=== PATIENT | male | born 1960 | race Caucasian/White ===

== ENCOUNTER 2021-04-29 01:30 | Inpatient (IN) ==
[~2021-04-29 01:30] MED LIST: Melatonin 3 MG TABLET PO PRN; Naloxone 0.4 MG/ML INJ IVP PRN
[2021-04-29] MEDS ORDERED: *HR* Dextrose 50 % in Water (Syg) 50 ML SYRINGE IVP PRN ×2 (01:41→11:59)
[2021-04-29] MEDS ORDERED: Dextrose Gel 15 GM/37.5 ML TUBE PO PRN ×4 (01:41→11:59)
[2021-04-29] MEDS ORDERED: D5% in Water 1,000 ML IVC PRN ×2 (01:41→11:59)
[2021-04-29] MEDS ORDERED: Albuterol 2.5 MG/3 ML NEBULIZER IH PRN ×2 (02:19→11:59)
[2021-04-29] MEDS ORDERED: Ringers Solution, Lactated 1,000 ML IVC SCH (03:00)
[2021-04-29 03:59] LABS: Basophils % 0.1 %; Hematocrit 44.1 % (37.5-50.1); Hemoglobin 14.9 g/dL (12.9-16.9); Immature Granulocytes % 0.8 % (0-4); Lymphocytes # 1.8 K/mcL (0.6-4.6); Lymphocytes % 8.4 %; Mean Corpuscular HGB Conc 33.8 g/dL (31.6-35.5); Mean Corpuscular Hemoglobin 31.2 pg (28.0-33.3); Mean Corpuscular Volume 92.5 fL (83.0-100.0); Mean Platelet Volume 8.7 fL (9.4-12.4); Monocytes # 1.5 K/mcL (0.0-1.3); Monocytes % 6.9 %; Neutrophils # 18.1 K/mcL (1.6-8.9); Platelet Count 193 K/mcL (140-400); Red Blood Count 4.77 M/mcL (4.19-5.50); Red Cell Distribution Width 13.2 % (11.5-14.5); Segmented Neutrophils % 83.8 %; White Blood Count 21.6 K/mcL (4.3-11.1)
[2021-04-29 04:16] LABS: INR 1.4; Prothrombin Time 15.2 Seconds (9.4-12.1)
[2021-04-29 04:22] LABS: Alanine Aminotransferase 7 Units/L (7-52); Albumin 3.4 g/dL (3.5-5.7); Albumin/Globulin Ratio 1.4 (1.1-2.2); Alkaline Phosphatase 47 Units/L (34-104); Aspartate Amino Transferase 10 Units/L (13-39); BUN/Creatinine Ratio 15 (6-26); Bilirubin,Total 0.9 mg/dL (0.3-1.0); Blood Urea Nitrogen 10 mg/dL (8-23); Calcium 8.5 mg/dL (8.6-10.3); Carbon Dioxide 28 mEq/L (23-29); Chloride 102 mEq/L (98-107); Globulin 2.4 g/dL (2.4-3.5); Glucose 123 mg/dL (70-105); Magnesium 1.8 mg/dL (1.6-2.6); Osmolality,Calculated 274 (280-300); Phosphorous 2.2 mg/dL (2.7-4.5); Potassium 3.5 mEq/L (3.5-5.1); Sodium 132 mEq/L (136-145); Total Protein 5.8 g/dL (6.4-8.9); eGFR For African Americans > 60 (> 60); eGFR For Non-African Americans > 60 (> 60)
[2021-04-29] MEDS ORDERED: 0.9 % Sodium Chloride 1,000 ML IVC SCH (04:30)
[2021-04-29] MEDS ORDERED: Piperacillin/Tazobactam 3.375 GM in 0.9 % Sodium Chloride Mini Bag 100 ML IVPB SCH (06:00)
[2021-04-29] MEDS ORDERED: Insulin LISPRO 300 UNITS/3 ML VIAL SUBQ SCH (06:00)
[2021-04-29] MEDS ORDERED: Ondansetron 4 MG/2 ML VIAL IVP PRN ×2 (09:11→11:59)
[2021-04-29] MEDS ORDERED: Ipratropium Neb 0.5 MG NEBULIZER IH PRN ×2 (09:11→11:59)
[2021-04-29] MEDS ORDERED: *HR* FentaNYL (PF) 100 MCG/2 ML VIAL IVP PRN ×2 (09:11→11:59)
[2021-04-29] MEDS ORDERED: Albuterol 2.5 MG/3 ML NEBULIZER IH ONE (09:12)
[2021-04-29] MEDS ORDERED: *HR* Succinylcholine 200 MG/10 ML VIAL IVP ONE (09:13)
[2021-04-29] MEDS ORDERED: *HR* Propofol 200 MG/20 ML VIAL IVP ONE (09:13)
[2021-04-29] MEDS ORDERED: Lidocaine HCL 4 ML Topical Solution (Laryng-O-Jet Kit Sterile Pak) TP ONE (09:13)
[2021-04-29] MEDS ORDERED: *HR* FentaNYL (PF) 100 MCG/2 ML VIAL ONE (09:13)
[2021-04-29] MEDS ORDERED: *HR* Rocuronium Bromide 50 MG/5 ML VIAL ONE (09:13)
[2021-04-29] MEDS ORDERED: Ondansetron 4 MG/2 ML VIAL ONE (09:13)
[2021-04-29] MEDS ORDERED: *HR* Midazolam HCl 2 MG/2 ML VIAL ONE (09:13)
[2021-04-29] MEDS ORDERED: Lidocaine -MPF 2% 5 ML VIAL ONE (09:13)
[2021-04-29] MEDS ORDERED: Sugammadex Sodium 200 MG/2 ML VIAL IV ONE (10:20)
[2021-04-29] MEDS ORDERED: *HR* HYDROMORPHONE 2 MG/ML VIAL ONE (10:32)
[2021-04-29] MEDS: *HR* HYDROmorphone PF 0.5 MG/0.5 ML SYRINGE IVP PRN ×3 (11:08→11:26)
[2021-04-29] MEDS ORDERED: Ringers Solution, Lactated 1,000 ML ONE (11:20)
[2021-04-29] MEDS ORDERED: Naloxone 0.4 MG/ML INJ IVP PRN (11:59)
[2021-04-29] MEDS ORDERED: *HR* HYDROmorphone PF 0.5 MG/0.5 ML SYRINGE IVP PRN (11:59)
[2021-04-29] MEDS ORDERED: Melatonin 3 MG TABLET PO PRN (11:59)
[2021-04-29] MEDS: 0.9 % Sodium Chloride 1,000 ML IVC SCH ×2 (13:01→21:59)
[2021-04-29] MEDS: Insulin LISPRO 300 UNITS/3 ML VIAL SUBQ SCH ×2 (13:04→18:22)
[2021-04-29] MEDS: Piperacillin/Tazobactam 3.375 GM in 0.9 % Sodium Chloride Mini Bag 100 ML IVPB SCH ×2 (13:46→21:56)
[2021-04-29] MEDS: amLODIPine 5 MG TABLET PO SCH (16:58)
[2021-04-29] MEDS ORDERED: Lisinopril-HCTZ 20-12.5mg TABLET PO SCH (17:00)
[2021-04-29] MEDS ORDERED: Morphine Sulfate 2 MG/ML SYRINGE IVP PRN (17:53)
[2021-04-29] MEDS ORDERED: Ergocalciferol (VIT D2) 50,000 UNIT (1.25MG) CAP PO SCH (18:00)
[2021-04-29] MEDS: *HR* HYDROcodone/Acet 10/325 mg TABLET PO PRN (18:14)
[2021-04-29] MEDS: clonazePAM 1 MG TABLET PO SCH (21:17)
[2021-04-30] MEDS: Insulin LISPRO 300 UNITS/3 ML VIAL SUBQ SCH ×4 (01:22→18:12)
[2021-04-30] MEDS: *HR* HYDROcodone/Acet 10/325 mg TABLET PO PRN ×3 (01:28→20:38)
[2021-04-30] MEDS: Piperacillin/Tazobactam 3.375 GM in 0.9 % Sodium Chloride Mini Bag 100 ML IVPB SCH ×3 (05:44→23:11)
[2021-04-30] MEDS ORDERED: Acetaminophen IV 1,000 MG/100 ML BAG IVPB ONE (08:32)
[2021-04-30] MEDS: Aspirin Enteric Coated 81 MG Tablet PO SCH (08:34)
[2021-04-30] MEDS: clonazePAM 1 MG TABLET PO SCH ×3 (08:35→20:37)
[2021-04-30] MEDS: amLODIPine 5 MG TABLET PO SCH (08:35)
[2021-04-30] MEDS: 0.9 % Sodium Chloride 1,000 ML IVC SCH ×2 (08:36→16:41)
[2021-04-30] MEDS ORDERED: lisinopriL 20 MG TABLET PO SCH (09:00)
[2021-04-30] MEDS: Ketorolac 30 MG/ML VIAL IVP SCH ×3 (10:05→17:55)
[2021-04-30 10:26] LABS: Basophils % 0.2 %; Eosinophils % 0.2 %; Hematocrit 44.2 % (37.5-50.1); Hemoglobin 14.9 g/dL (12.9-16.9); Immature Granulocytes % 0.4 % (0-4); Lymphocytes # 1.4 K/mcL (0.6-4.6); Lymphocytes % 11.3 %; Mean Corpuscular HGB Conc 33.7 g/dL (31.6-35.5); Mean Corpuscular Hemoglobin 32.3 pg (28.0-33.3); Mean Corpuscular Volume 95.9 fL (83.0-100.0); Mean Platelet Volume 9.3 fL (9.4-12.4); Monocytes # 0.6 K/mcL (0.0-1.3); Monocytes % 5.1 %; Neutrophils # 10.2 K/mcL (1.6-8.9); Platelet Count 211 K/mcL (140-400); Red Blood Count 4.61 M/mcL (4.19-5.50); Red Cell Distribution Width 13.6 % (11.5-14.5); Segmented Neutrophils % 82.8 %; White Blood Count 12.3 K/mcL (4.3-11.1)
[2021-04-30 10:53] LABS: Alanine Aminotransferase 15 Units/L (7-52); Albumin 3.3 g/dL (3.5-5.7); Albumin/Globulin Ratio 1.2 (1.1-2.2); Alkaline Phosphatase 54 Units/L (34-104); Aspartate Amino Transferase 15 Units/L (13-39); BUN/Creatinine Ratio 16 (6-26); Blood Urea Nitrogen 10 mg/dL (8-23); Calcium 8.4 mg/dL (8.6-10.3); Carbon Dioxide 31 mEq/L (23-29); Chloride 105 mEq/L (98-107); Globulin 2.8 g/dL (2.4-3.5); Glucose 124 mg/dL (70-105); Osmolality,Calculated 294 (280-300); Potassium 3.9 mEq/L (3.5-5.1); Sodium 142 mEq/L (136-145); Total Protein 6.1 g/dL (6.4-8.9); eGFR For African Americans > 60 (> 60); eGFR For Non-African Americans > 60 (> 60)
[2021-04-30] MEDS ORDERED: 0.9 % Sodium Chloride 500 ML IVC PRN (14:31)
[2021-05-01] MEDS: Insulin LISPRO 300 UNITS/3 ML VIAL SUBQ SCH ×4 (00:42→17:03)
[2021-05-01] MEDS: Ketorolac 30 MG/ML VIAL IVP SCH ×2 (00:42→06:07)
[2021-05-01] MEDS: *HR* HYDROcodone/Acet 10/325 mg TABLET PO PRN ×3 (03:17→21:38)
[2021-05-01] MEDS: 0.9 % Sodium Chloride 1,000 ML IVC SCH ×3 (03:17→23:37)
[2021-05-01] MEDS: Piperacillin/Tazobactam 3.375 GM in 0.9 % Sodium Chloride Mini Bag 100 ML IVPB SCH ×3 (06:07→21:39)
[2021-05-01] MEDS: Aspirin Enteric Coated 81 MG Tablet PO SCH (08:03)
[2021-05-01] MEDS: clonazePAM 1 MG TABLET PO SCH ×3 (08:03→21:38)
[2021-05-02] MEDS: Insulin LISPRO 300 UNITS/3 ML VIAL SUBQ SCH ×2 (01:04→07:27)
[2021-05-02] MEDS: *HR* HYDROcodone/Acet 10/325 mg TABLET PO PRN (04:30)
[2021-05-02 07:12] VITALS: BP 123/68; PULSE 63; TEMP 97.9; O2SAT 90
[2021-05-02] MEDS: Aspirin Enteric Coated 81 MG Tablet PO SCH (07:47)
[2021-05-02] MEDS: clonazePAM 1 MG TABLET PO SCH (07:47)
[2021-05-02 08:46] LABS: Basophils % 0.3 %; Eosinophils # 0.2 K/mcL (0.0-0.6); Eosinophils % 2.5 %; Hematocrit 42.2 % (37.5-50.1); Immature Granulocytes % 0.4 % (0-4); Lymphocytes # 2.2 K/mcL (0.6-4.6); Lymphocytes % 22.5 %; Mean Corpuscular HGB Conc 33.2 g/dL (31.6-35.5); Mean Corpuscular Hemoglobin 32.2 pg (28.0-33.3); Mean Platelet Volume 8.9 fL (9.4-12.4); Monocytes # 0.9 K/mcL (0.0-1.3); Monocytes % 9.5 %; Neutrophils # 6.3 K/mcL (1.6-8.9); Platelet Count 274 K/mcL (140-400); Red Blood Count 4.35 M/mcL (4.19-5.50); Red Cell Distribution Width 14.1 % (11.5-14.5); Segmented Neutrophils % 64.8 %; White Blood Count 9.7 K/mcL (4.3-11.1)
[2021-05-02 09:10] LABS: BUN/Creatinine Ratio 14 (6-26); Blood Urea Nitrogen 8 mg/dL (8-23); Calcium 8.2 mg/dL (8.6-10.3); Carbon Dioxide 33 mEq/L (23-29); Chloride 104 mEq/L (98-107); Glucose 98 mg/dL (70-105); Osmolality,Calculated 290 (280-300); Potassium 4.4 mEq/L (3.5-5.1); Sodium 141 mEq/L (136-145); eGFR For African Americans > 60 (> 60); eGFR For Non-African Americans > 60 (> 60)
== END 2021-05-02 11:41 | disposition home or self-care (01) | DRG 710 ==
LOC: 3ANU → SUATTDRO 01:30
PROVIDERS: ADMIT Internal Medicine; ATTEND General Practice